=== PATIENT | male | born 1955 | race Caucasian/White ===

== ENCOUNTER 2016-10-29 07:45 | Outpatient (CLI) | payer OTHER ==
[2016-10-29 19:27] LABS: ALBUMIN/GLOBULIN RATIO 1.6 (1.0-2.2); BILIRUBIN,TOTAL 0.9 mg/dL (0.2-1.0); BUN - BLOOD UREA NITROGEN 22 mg/dL (6-20); CALCIUM 9.2 mg/dL (8.5-10.3); CARBON DIOXIDE - CO2 26 mmol/L (21-32); CHLORIDE 100 mmol/L (101-111); CHOL/HDL RATIO 2.9 (<5.0); CHOLESTEROL 250 mg/dL; CREATININE 0.7 mg/dL (0.6-1.2); GFR - MDRD 115 (>89); GLUCOSE 92 mg/dL (70-100); HDL CHOLESTEROL 85 mg/dL; LDL/HDL RATIO 1.7 (<3.6); POTASSIUM 4.1 mmol/L (3.5-5.0); SODIUM 136 mmol/L (135-145); TOTAL PROTEIN 7.4 g/dL (6.7-8.2); TRIGLYCERIDES 89 mg/dL; VLDL CHOLESTEROL 18 mg/dL
== END 2016-10-29 07:46 | disposition home or self-care (01) ==
LOC: LAB.WCP 07:45
PROVIDERS: ATTEND Family Medicine
DX: E78.5 Hyperlipidemia, unspecified (principal)
CPT/HCPCS: 36415; 80053; 80061; 84153

== ENCOUNTER 2017-04-23 08:37 | Day surgery (SDC) | payer OTHER ==
[2017-04-23] MEDS ORDERED: LACTATED RINGERS 1,000 ML IV ONE (09:00)
[2017-04-23] MEDS ORDERED: fentaNYL 100 MCG/2 ML VIAL IVP ONE (09:53)
[2017-04-23] MEDS ORDERED: MIDAZOLAM 2 MG/2 ML VIAL IVP ONE (09:53)
[2017-04-23 11:06] VITALS: BP 108/59
== END 2017-04-23 08:38 | disposition home or self-care (01) ==
LOC: SDS 08:37
PROVIDERS: ATTEND Surgery
PROC: 0DBP8ZX Excision of Rectum, Via Natural or Artificial Opening Endoscopic, Diagnostic (ICD-10-PCS; 2017-04-23)
PROC: 0DBK8ZX Excision of Ascending Colon, Via Natural or Artificial Opening Endoscopic, Diagnostic (ICD-10-PCS; principal; 2017-04-23 09:45)
DX: Z12.11 Encounter for screening for malignant neoplasm of colon (principal); K57.30 Diverticulosis of large intestine without perforation or abscess without bleeding; D12.2 Benign neoplasm of ascending colon; K62.1 Rectal polyp; Z80.0 Family history of malignant neoplasm of digestive organs; Z79.82 Long term (current) use of aspirin; I35.0 Nonrheumatic aortic (valve) stenosis; Z87.891 Personal history of nicotine dependence
CPT/HCPCS: 45384; 45385; J7120

== ENCOUNTER 2017-07-31 20:26 | Outpatient (CLI) | payer OTHER ==
[2017-07-31 18:55] LABS: BASOPHILS # (AUTO) 0.1 10^3/uL (0.0-0.1); BASOPHILS % (AUTO) 1.4 %; EOSINOPHILS # (AUTO) 0.1 10^3/uL (0.0-0.7); HGB - HEMOGLOBIN 15.3 g/dL (14.0-18.0); LYMPHOCYTES # (AUTO) 2.2 10^3/uL (1.5-3.5); LYMPHOCYTES % (AUTO) 27.6 %; MEAN CORPUSCULAR HEMOGLOBIN 32.9 pg (27.0-31.0); MEAN CORPUSCULAR HGB CONC 33.9 g/dL (32.0-36.0); MEAN PLATELET VOLUME 8.1 fL (7.4-11.4); MONOCYTES # (AUTO) 0.7 10^3/uL (0.0-1.0); MONOCYTES % (AUTO) 9.1 %; NEUTROPHILS # (AUTO) 4.9 10^3/uL (1.5-6.6); NEUTROPHILS % (AUTO) 60.9 %; PLT - PLATELET COUNT 229 10^3/uL (130-450); RED BLOOD COUNT 4.66 10^6/uL (4.70-6.10); RED CELL DISTRIBUTION WIDTH 14.2 % (12.0-15.0)
[2017-07-31 19:08] LABS: ALBUMIN/GLOBULIN RATIO 1.6 (1.0-2.2); ALKALINE PHOSPHATASE 56 IU/L (42-121); ALT ALANINE AMINOTRANSFERASE 27 IU/L (10-60); AST ASPARTATE AMINOTRANSFERASE 28 IU/L (10-42); BUN - BLOOD UREA NITROGEN 26 mg/dL (6-20); CALCIUM 9.8 mg/dL (8.5-10.3); CARBON DIOXIDE - CO2 23 mmol/L (21-32); CHLORIDE 100 mmol/L (101-111); CHOL/HDL RATIO 6.4 (<5.0); CHOLESTEROL 432 mg/dL; CREATININE 1.2 mg/dL (0.6-1.2); GFR - MDRD 62 (>89); GLUCOSE 121 mg/dL (70-100); HDL CHOLESTEROL 68 mg/dL; LDL CHOLESTEROL,CALCULATED 317 mg/dL; LDL/HDL RATIO 4.7 (<3.6); SODIUM 135 mmol/L (135-145); TOTAL PROTEIN 8.2 g/dL (6.7-8.2); VLDL CHOLESTEROL 47 mg/dL
== END 2017-07-31 20:27 | disposition home or self-care (01) ==
LOC: LAB.WCP 20:26
PROVIDERS: ATTEND Family Medicine
DX: Z86.79 Personal history of other diseases of the circulatory system (principal); E78.5 Hyperlipidemia, unspecified
CPT/HCPCS: 36415; 80053; 80061; 83721; 85025

== ENCOUNTER 2018-05-12 12:25 | Day surgery (SDC) | payer OTHER ==
[2018-05-12] MEDS ORDERED: LACTATED RINGERS 1,000 ML IV ONE (12:33)
[2018-05-12] MEDS ORDERED: fentaNYL 250 MCG/5 ML VIAL IVP ONE (13:21)
[2018-05-12] MEDS ORDERED: MIDAZOLAM 2 MG/2 ML VIAL IVP ONE (13:21)
[2018-05-12 14:10] VITALS: BP 132/81
== END 2018-05-12 12:26 | disposition home or self-care (01) ==
LOC: SDS 12:25
PROVIDERS: ATTEND Surgery
PROC: 0DJD8ZZ Inspection of Lower Intestinal Tract, Via Natural or Artificial Opening Endoscopic (ICD-10-PCS; principal; 2018-05-12 13:30)
DX: Z09 Encounter for follow-up examination after completed treatment for conditions other than malignant neoplasm (principal); Z86.010 Personal history of colon polyps; K57.30 Diverticulosis of large intestine without perforation or abscess without bleeding; K64.8 Other hemorrhoids
CPT/HCPCS: 45378; J3010; J7120

== ENCOUNTER 2018-10-23 05:57 | Day surgery (SDC) | payer OTHER ==
[2018-10-23] MEDS ORDERED: CEFAZOLIN SODIUM IN 0.9 % NACL 2 GM/100 ML BAG IV ONE (06:31)
[2018-10-23] MEDS ORDERED: LACTATED RINGERS 1,000 ML IV ONE (06:55)
--- NOTE | 2018-10-23 07:13 | ANESTHESIA ---
Pre-Anesthesia VS, & Labs - Diagnosis L ring finger cyst - Procedure L ring finger cyst excision Vital Signs: Temp Pulse Resp BP Pulse Ox 36.5 C 57 L 16 120/80 96 10/23/18 06:29 10/23/18 06:29 10/23/18 06:29 10/23/18 06:29 10/23/18 06:29 Height 5 ft 11 in Weight (kg) 90.72 kg - NPO >8 hours - Lab Results Lab results reviewed: No Home Medications and Allergies Home Medications: Ambulatory Orders RX: Red Yeast Rice 1,200 mg PO BID 10/22/18 RX: hydroCHLOROthiazide [Hydrochlorothiazide] 25 mg PO 10/22/18 Aspirin 81 mg PO DAILY 04/23/17 Lisinopril [Prinivil] 20 mg PO BID 04/23/17 Niacin [Niaspan] 1,000 mg PO HS 04/23/17 Metoprolol Tartrate 25 mg PO DAILY 05/09/18 Red Yeast Rice 1,200 mg PO BID 10/22/18 hydroCHLOROthiazide [Hydrochlorothiazide] 25 mg PO 10/22/18 Allergies/Adverse Reactions: Allergies Allergy/AdvReac Type Severity Reaction Status Date / Time [id number] Reductase AdvReac Cramps Verified 10/22/18 14:46 Inhibitor Anes History & Medical History - Anesthetic History Anesthesia Complications: reports: No previous complications Family history of Anesthesia Complications: Denies Family history of Malignant Hyperthermia: Denies - Medical History Cardiovascular: reports: Hypertension, High cholesterol, Other Pulmonary: reports: None Gastrointestinal: reports: None Urinary: reports: None Musculoskeletal: reports: Other Endocrine/Autoimmune: reports: None Skin: reports: None - Surgical History General: Colonoscopy Eyes Ears Nose Throat (EENT): Tonsil/Adenoidectomy Cardiothoracic: Other Exam General: Alert, Oriented x3, Cooperative Mouth Openin Fingerbreadth Neck Mobility: Normal Mallampati classification: II Thyromental Distance: 4-6 cm Respiratory: Normal breath sounds Cardiovascular: Regular rate Neurological: Normal speech Cognitive Status: Within normal limits Plan Anesthesia Type: MAC Consent for Procedure(s) Verified and Reviewed: Yes Code Status: Attempt Resuscitation ASA classification: 3-Severe systemic disease Is this case an emergency?: No
[2018-10-23] MEDS ORDERED: LIDOCAINE-MPF 1% 30 ML VIAL ONE (07:26)
[2018-10-23] MEDS ORDERED: BUPIVACAINE 0.25% PF 30 ML VIAL ONE (07:26)
[2018-10-23] MEDS ORDERED: MIDAZOLAM 2 MG/2 ML VIAL IVP ONE (07:30)
[2018-10-23] MEDS ORDERED: fentaNYL 100 MCG/2 ML VIAL IVP ONE (07:30)
[2018-10-23] MEDS ORDERED: PROPOFOL 200 MG/20 ML VIAL IVP ONE (07:30)
[2018-10-23] MEDS ORDERED: ONDANSETRON 4 MG/2 ML VIAL IVP PRN (08:40)
[2018-10-23] MEDS ORDERED: oxyCODONE 5 MG TABLET PO PRN (08:40)
--- NOTE | 2018-10-23 08:49 | OPERATIVE REPORT ---
Operative Report - General Planned Procedure: Left dorsal ring finger Pre-Op Diagnosis: Left dorsal ring finger cyst Procedure Performed: Left dorsal ring finger cyst excision Post Op Diagnosis: Left dorsal ring finger cyst - Procedure Note Primary Surgeon: JAYY SPAULDING Secondary Surgeon: SANTOS JORDAN Anesthesia Technique: Local, MAC Estimated Blood Loss (mL): 5 - Other Other Information/Narrative: Tourniquet Time: 32 minutes at 250mmHg. Specimen(s) Information: Left dorsal ring finger mass Complication(s): None Condition: Stable to recovery Indications for Surgery: The patient is a 63-year-old right hand dominant male with approximately 1 year history of of a mass overlying the dorsal/ulnar aspect of the left ring finger PIPJ. Exam demonstrated a mobile, compressible mass . Xrays demonstarted a soft-tissue mass without calcifications, with no significant opsteophytes at the joint. U/S demonstrated a fluid filled cyst which appeared to track to the underlying PIP joint. The patient was counseled on treatment options to include continued nonoperative treatment in the form of activity modification, possible aspiration of the mass versus surgical excision. Risks of surgery were discussed to include bleeding, infection, postoperative stiffness, wound complications, mass recurrence, damage to nerves, vessels, tendons, ligaments, bone and anesthesia complications to include medication side effects and allergic reactions, heart attack, stroke and . After discussion, they wished to proceed. Findings: Left dorsal ring finger cyst, fluid filled. Descriptions of Procedure: The patient was met in the Preoperative Holding Area, at which time preoperative paperwork was confirmed. The left ring finger was signed. The patient was then brought to Main Operating Room, placed supine on the Operating Room table, at which time pre procedure timeout was conducted. Monitored anesthesia care was initiated. The operative extremity was then prepped and draped over a hand table in the normal sterile fashion after a well-padded tourniquet was placed on the proximal arm. A final timeout was conducted to confirm the correct patient, correct extremity and correct procedure and to confirm that antibiotics had been administered within 30 minutes of incision time. Ten mL of 0.25% marcaine pain and 1% lidocaine plain in a 1:1 mixture was injected intrathecally into the ring finger flexor tendon sheath and in field-block fashion across the dorsum of the base of the finger. Adequate local anesthesia was confirmed by pinching the skin with a set of Adson foreceps without response. The operative extremity was then exsanguinated with an Esmarch bandage and tourniquet inflated to 250mmHg. A curved Jeffery-style radially based incision, with the ulnarmost aspect of the incision centered over the ulnar aspect of the PIPJ was made with a #15 blade through the skin. A full thickness dorsal flap was developed over the mass. The mass was carefully dissected, removing all soft tissue attachments surrounding the mass down to the dorsal ulnar joint capsule, taking care not to disrupt the extensor tendon insertion. The mass was then excised off of the dorsoulnar joint capsule and a small portion of the joint capsule and synovium was excises. The mass was fluid filled, consistent with a ganglion cyst. The mass was then passed off the back table in a sterile specimen cup fixed in formalin. The wound was then copiously irrigated. The skin was then closed with 4-0 nylon in interrupted horizontal mattress fashion. The wound was dressed with xeroform, plain 4x4 gauze, fluffs, bobby followed by a gently compressive Jorge bandage. The tourniquet was let down. The the drapes were taken down and the patient was brought to the Post Anesthesia Care for further recovery. Postoperative Plan: 1. The patient will be discharged from the Same Day Surgery Unit when discharge criteria are met. 2. The patient will remain in the post-operative dressing for 5 days. 3. They have been instructed to start early finger ROM and not to lift anything heavier than a cup of coffee until follow-up. 4. Expect return to full activites in 4-6 weeks. 5. Follow-up pathology
[2018-10-23 09:08] VITALS: BP 130/78
== END 2018-10-23 05:58 | disposition home or self-care (01) ==
LOC: SDS 05:57
PROVIDERS: ATTEND Orthopaedic Surgery
PROC: 0RBX0ZZ Excision of Left Finger Phalangeal Joint, Open Approach (ICD-10-PCS; principal; 2018-10-23 07:30)
DX: D21.12 Benign neoplasm of connective and other soft tissue of left upper limb, including shoulder (principal); I10 Essential (primary) hypertension; I25.10 Atherosclerotic heart disease of native coronary artery without angina pectoris; E78.5 Hyperlipidemia, unspecified; Z95.3 Presence of xenogenic heart valve; Z79.82 Long term (current) use of aspirin; Z79.899 Other long term (current) drug therapy
CPT/HCPCS: 26160; J0690; J7120

== ENCOUNTER 2021-01-22 15:36 | Emergency (ER) | payer OTHER ==
--- NOTE | 2021-01-22 15:58 | ED Physician Documentation ---
PD HPI ABD PAIN - Stated complaint Stated Complaint: ABD PX; POST OP - Chief complaint Chief Complaint: Abd Pain - History obtained from History obtained from: Patient - Additional information Additional information: He had complicated ruptured appendicitis 6 weeks ago. He is doing well postoperatively until today and he is developed upper abdominal discomfort and bloating. There is no associated fevers, nausea, changes in bowel movements. No other history of abdominal surgeries but he has had a bovine aortic valve replacement. Review of Systems Ten Systems: 10 systems reviewed and negative Constitutional: reports: Reviewed and negative Eyes: reports: Reviewed and negative Ears: reports: Reviewed and negative Nose: reports: Reviewed and negative Throat: reports: Reviewed and negative Cardiac: reports: Reviewed and negative Respiratory: reports: Reviewed and negative PD PAST MEDICAL HISTORY - Past Medical History Cardiovascular: Hypertension, High cholesterol, Other Respiratory: None Endocrine/Autoimmune: None GI: None : None HEENT: Other Psych: None Musculoskeletal: Other Derm: None - Past Surgical History General: Colonoscopy Cardiovascular: Other HEENT: Tonsil/Adenoidectomy - Present Medications Home Medications: Ambulatory Orders Medication Instructions Recorded Confirmed Aspirin 81 mg PO DAILY 04/23/17 01/22/21 lisinopriL [Prinivil] 20 mg PO BID 04/23/17 01/22/21 Metoprolol Tartrate 50 mg PO DAILY 05/09/18 01/22/21 Famotidine [Pepcid] 20 mg PO DAILY 01/22/21 01/22/21 Lactobacillus Combination No.4 1 each PO DAILY 01/22/21 01/22/21 [Probiotic] Dos Rios-3/Dha/Epa/Fish Oil [Fish Oil 1 cap ORAL BID 01/22/21 01/22/21 500 mg Softgel] Turmeric 400 mg PO DAILY 01/22/21 01/22/21 Zinc Gluconate [Zinc] 50 mg PO DAILY 01/22/21 01/22/21 amLODIPine [Norvasc] 5 mg PO DAILY 01/22/21 01/22/21 amLODIPine [Norvasc] 5 mg PO DAILY #90 tablet 01/22/21 - Allergies Allergies/Adverse Reactions: Allergies Allergy/AdvReac Type Severity Reaction Status Date / Time Fovpoql-Hqk-Cjo Reductase AdvReac Cramps Verified 01/22/21 15:41 Inhibitor PD ED PE NORMAL - Vitals Vital signs reviewed: Yes - General General: Alert and oriented X 3, No acute distress - HEENT HEENT: PERRL, EOMI - Neck Neck: Supple, no meningeal sign, No bony TTP - Cardiac Cardiac: RRR, Other (3 out of 6 systolic murmur radiating to the belly) - Respiratory Respiratory: No respiratory distress, Clear bilaterally - Abdomen Abdomen: Normal bowel sounds, Soft, Non tender - Back Back: No CVA TTP, No spinal TTP - Derm Derm: Normal color, Warm and dry - Extremities Extremities: No edema, No calf tenderness / cord - Neuro Neuro: Alert and oriented X 3, Normal speech Results - Vitals Vitals: Vital Signs - 24 hr 01/22/21 01/22/21 01/22/21 15:42 16:15 17:28 Temperature 36.5 C 36.4 C L Heart Rate 79 70 65 Respiratory 16 16 18 Rate Blood Pressure 149/86 H 156/73 H 146/79 H O2 Saturation 96 96 97 Oxygen O2 Source Room air - Labs Labs: Laboratory Tests 01/22/21 01/22/21 01/22/21 16:02 16:02 17:55 WBC 8.3 RBC 4.26 L Hgb 13.6 L Hct 39.7 L MCV 93.2 MCH 31.9 H MCHC 34.3 RDW 13.1 Plt Count 182 MPV 9.6 Neut # (Auto) 5.8 Lymph # (Auto) 1.7 Elliott # (Auto) 0.7 Eos # (Auto) 0.1 Baso # (Auto) 0.0 Absolute Nucleated RBC 0.00 Nucleated RBC % 0.0 Sodium 138 Potassium 3.9 Chloride 102 Carbon Dioxide 27 Anion Gap 9.0 BUN 21 H Creatinine 0.9 Estimated GFR (MDRD) 85 L Glucose 137 H Calcium 9.2 Total Bilirubin 0.7 AST 21 ALT 23 Alkaline Phosphatase 78 Total Protein 7.5 Albumin 4.3 Globulin 3.2 Albumin/Globulin Ratio 1.3 Lipase 37 Urine Color YELLOW Urine Clarity CLEAR Urine pH 7.5 Ur Specific [place] 1.015 Urine Protein NEGATIVE Urine Glucose (UA) NEGATIVE Urine Ketones NEGATIVE Urine Occult Blood NEGATIVE Urine Nitrite NEGATIVE Urine Bilirubin NEGATIVE Urine Urobilinogen 0.2 (NORMAL) Ur Leukocyte Esterase NEGATIVE Ur Microscopic Review NOT INDICATED Urine Culture Comments NOT INDICATED PD MEDICAL DECISION MAKING - ED course ED course: 65-year-old gentleman presents with upper abdominal pain and bloating. He is worried about postoperative infection related to appendectomy 6 weeks ago which was complicated. He has a benign belly with negative work-up here except for diverticulosis and a concern for stranding about the kidneys but with negative urinalysis. He needed a refill of his blood pressure medication as he is traveling. Departure - Departure Disposition: 01 Home, Self Care Clinical Impression: Abdominal pain Qualifiers: Abdominal location: epigastric Qualified Code(s): R10.13 - Epigastric pain Condition: Good Record reviewed to determine appropriate education?: Yes Instructions: ED Abdominal Pain Unkn Cause Prescriptions: amLODIPine [Norvasc] 5 mg PO DAILY #90 tablet Comments: CT scan was negative except for concern for stranding around her kidneys and diverticulosis without diverticulitis. Urinalysis was normal. Keep an eye on your pain and if worse or if new symptoms develop please return for reevaluation.
[2021-01-22 16:07] LABS: BASOPHILS % (AUTO) 0.2 %; EOSINOPHILS # (AUTO) 0.1 10^3/uL (0.0-0.7); EOSINOPHILS % (AUTO) 0.7 %; HCT - HEMATOCRIT 39.7 % (42.0-52.0); HGB - HEMOGLOBIN 13.6 g/dL (14.0-18.0); LYMPHOCYTES # (AUTO) 1.7 10^3/uL (1.5-3.5); LYMPHOCYTES % (AUTO) 20.5 %; MEAN CORPUSCULAR HEMOGLOBIN 31.9 pg (27.0-31.0); MEAN CORPUSCULAR HGB CONC 34.3 g/dL (32.0-36.0); MEAN CORPUSCULAR VOLUME 93.2 fL (80.0-94.0); MEAN PLATELET VOLUME 9.6 fL (7.4-11.4); MONOCYTES # (AUTO) 0.7 10^3/uL (0.0-1.0); NEUTROPHILS # (AUTO) 5.8 10^3/uL (1.5-6.6); NEUTROPHILS % (AUTO) 70.1 %; PLT - PLATELET COUNT 182 10^3/uL (130-450); RED BLOOD COUNT 4.26 10^6/uL (4.70-6.10); RED CELL DISTRIBUTION WIDTH 13.1 % (12.0-15.0); WHITE BLOOD COUNT 8.3 x10^3/uL (4.8-10.8)
[2021-01-22] MEDS ORDERED: IOPAMIDOL-300 50 ML VIAL ONE (16:08)
[2021-01-22 16:19] LABS: ALBUMIN 4.3 g/dL (3.2-5.5); ALBUMIN/GLOBULIN RATIO 1.3 (1.0-2.2); BILIRUBIN,TOTAL 0.7 mg/dL (0.2-1.0); CALCIUM 9.2 mg/dL (8.5-10.3); CREATININE 0.9 mg/dL (0.6-1.2); POTASSIUM 3.9 mmol/L (3.5-5.0); TOTAL PROTEIN 7.5 g/dL (6.7-8.2)
[2021-01-22] MEDS ORDERED: IOPAMIDOL-300 50 ML VIAL IVP ONE (16:59)
[2021-01-22 17:29] VITALS: BP 146/79
--- NOTE | 2021-01-22 17:30 | CT Report ---
PROCEDURE: Abdomen/Pelvis W INDICATIONS: IV only, abd painb CONTRAST: IV CONTRAST: Isovue 300 ml: 100 PO CONTRAST: *NO PO CONTRAST TECHNIQUE: After the administration of 100 mL Isovue-300 contrast, 5 mm thick sections acquired from the diaphra gms to the symphysis. 5 mm thick coronal and sagittal reformats were acquired. For radiation dose r eduction, the following was used: automated exposure control, adjustment of mA and/or kV according t o patient size. COMPARISON: None. FINDINGS: Image quality: Excellent. ABDOMEN: Lung bases: Lung bases are clear. Heart size is normal. Postsurgical changes of the aortic valve. Solid organs: Liver and spleen are normal in size and enhancement. Gallbladder normal Biliary syst em is non dilated. Pancreas enhances normally. No adrenal nodules. Kidneys demonstrate normal size and enhancement, without hydronephrosis. Mild fat stranding about the distal ureters. Peritoneum and bowel: Bowel loops demonstrate normal wall thickness and caliber. Diverticulosis col i. Surgically absent appendix. No free fluid or air. Nodes and vessels: No retroperitoneal or mesenteric adenopathy by size criteria. Aorta and inferior vena cava are normal in size. Miscellaneous: No ventral hernias. PELVIS: Genitourinary: Bladder wall thickness is normal. Miscellaneous: No inguinal hernias or adenopathy. Bones: No suspicious bony lesions. No vertebral body compression fractures. IMPRESSION: Mild nonspecific fatty stranding about the distal ureters. Correlate with urinary lab work for possib le urinary tract infection. Otherwise no acute abdominal findings. Diverticulosis coli Reviewed by: Virgil Hogan on 01/22/2021 4:28 PM CARLOS Approved by: Virgil Hogan on 01/22/2021 4:28 PM AKMANE Station ID: [id number]
[2021-01-22 18:01] LABS: BILIRUBIN,URINE NEGATIVE (NEGATIVE); GLUCOSE, URINE (UA) NEGATIVE (NEGATIVE); KETONES,URINE (UA) NEGATIVE (NEGATIVE); LEUKOCYTE ESTERASE, URINE NEGATIVE (NEGATIVE); NITRITE,URINE NEGATIVE (NEGATIVE); OCCULT BLOOD,URINE NEGATIVE (NEGATIVE); PH,URINE 7.5 PH (5.0-7.5); PROTEIN,URINE NEGATIVE (NEGATIVE); UROBILINOGEN,URINE 0.2 (NORMAL) E.U./dL (NORMAL)
[2021-01-22 18:02] LABS: CLARITY,URINE CLEAR (CLEAR)
== END 2021-01-22 18:20 | disposition home or self-care (01) ==
LOC: ED 15:36
DX: R10.13 Epigastric pain (principal); R14.0 Abdominal distension (gaseous); Z98.890 Other specified postprocedural states; Z90.49 Acquired absence of other specified parts of digestive tract; K57.30 Diverticulosis of large intestine without perforation or abscess without bleeding; I10 Essential (primary) hypertension; Z76.0 Encounter for issue of repeat prescription; Z95.4 Presence of other heart-valve replacement; Z79.82 Long term (current) use of aspirin
CPT/HCPCS: 36415; 74177; 80053; 81003; 83690; 85025; 99284; Q9967; 81001; 87086